=== PATIENT | male | born 1985 | race Caucasian/White ===

== ENCOUNTER → 2017-05-20 | Outpatient (CLI) | payer OTHER ==
[2015-11-30 12:19] VITALS: BP 110/83
[~2017-05-20] MED LIST: HYDR-971 PO
--- NOTE | 2017-05-20 16:40 | RAD ---
Chest, 2 views, 05/20/2017: History: Pleuritic chest pain, cough Comparison is made to a study from 03/15/2013. The heart size is normal. There is a right-sided pneumothorax estimated at 15-20% in volume. There is a small amount of associated pleural fluid. Prominent pulmonary markings medially in the right lower chest probably represent associated atelectasis. The left chest is clear. No left-sided pleural fluid is evident. IMPRESSION: 1. Small right pneumothorax with mild right basilar atelectasis. 2. Tiny right pleural effusion Note: I was unsuccessful in personally contacting the ordering provider, however, this report is currently being delivered to the ordering provider's office by the cardiovascular technologist.
== END | disposition home or self-care (01) ==
LOC: PMG 09:46
PROVIDERS: ATTEND Physician Assistant
DX: J98.11 Atelectasis (principal); J90 Pleural effusion, not elsewhere classified
CPT/HCPCS: 71046

== ENCOUNTER → 2017-05-25 | Outpatient (CLI) | payer OTHER ==
[2015-11-30 12:19] VITALS: BP 110/83
--- NOTE | 2017-05-25 12:26 | RAD ---
2 views of the Chest 05/25/2017 2:00 AM Indication: pneumothorax Comparison: Chest radiograph, May 20, 2017 Findings: There is a small right pneumothorax essentially unchanged from prior study. Trace underlying effusion is similar. Lungs are otherwise grossly clear. Heart size is normal. No acute osseous changes are seen. Impression: Grossly stable small right pneumothorax with trace underlying effusion.
== END | disposition home or self-care (01) ==
LOC: PMG 09:30
PROVIDERS: ATTEND Physician Assistant
DX: J93.83 Other pneumothorax (principal); Z87.891 Personal history of nicotine dependence
CPT/HCPCS: 71046

== ENCOUNTER 2017-07-18 10:58 | Emergency (ER) | payer OTHER ==
[~2017-07-18] VITALS: Ht 170.2 cm; Wt 64.4 kg
[2017-07-18] MEDS ORDERED: IV NORMAL SALINE 1,000ML 1,000 ML IV SCH (11:09)
[2017-07-18 11:38] LABS: BASO # 0.1 x10^3/uL (0.0-0.2); BASO % 1 % (0-3); EOS # 0.2 x10^3/uL (0.0-0.7); EOS % 3 % (0-3); HEMATOCRIT 40.2 % (39.0-53.0); HEMOGLOBIN 13.8 g/dL (13.0-17.5); LYMPH # 1.6 x10^3/uL (1.0-4.8); LYMPH % 19 % (24-48); MEAN CORPUSCULAR HEMOGLOBIN 31 pg (25-35); MEAN CORPUSCULAR HGB CONC 34 g/dL (31-37); MEAN CORPUSCULAR VOLUME 91 fL (79-100); MONO # 0.5 x10^3/uL (0.0-1.1); MONO % 6 % (0-9); NEUT # 6.4 x10^3uL (1.8-7.7); NEUT % 72 % (31-73); PLATELET COUNT 249 x10^3/uL (140-400); RED BLOOD COUNT 4.43 x10^6/uL (4.30-5.70); RED CELL DISTRIBUTION WIDTH 13.1 % (11.5-14.5); WHITE BLOOD COUNT 8.9 x10^3/uL (4.0-11.0)
--- NOTE | 2017-07-18 11:43 | RAD ---
CHEST PA LATERAL Clinical indications: Chest pain x 1 day, pt shielded, no hx of heart disease Findings: A large left-sided pneumothorax is seen with complete collapse of the left lung field. The heart is shifted more towards the right side in comparison to a prior chest x-ray dated May 20, 2017 consistent with tension pneumothorax. No lung consolidation or pleural effusion is seen otherwise. The heart size, pulmonary vasculature, mediastinum and both wes are unremarkable. The osseous structures appear intact. Impression: Tension pneumothorax on the left side. Note-this critical result was called to the emergency room physician Dr. Horace Vilchis at 11:37 AM on July 18, 2017. Electronically signed by: Milton Gorman MD (07/18/2017 11:39 AM) [facility]
--- NOTE | 2017-07-18 11:48 | PHYS DOC ---
Past History Past Medical History: No Pertinent History, Other Past Surgical History: No Surgical History Alcohol Use: None Drug Use: Marijuana Adult General Chief Complaint Chief Complaint: CHEST PAIN HPI HPI 32-year-old male presents with left-sided anterior chest pain. The patient woke up at 7 AM this morning with sudden onset sharp pain in the left chest just above his breast. The pain is moderate to severe. It is worse with deep breathing, lying back, as well as leaning forward forward. He states that when he got on the cart accompanied emergency room the pain was at its worst as he bent over. The patient has not had this happen before. He has had 2 spontaneous pneumothorax in the past, both on the right. Review of Systems Review of Systems Constitutional: Denies fever or chills [] Eyes: Denies change in visual acuity, redness, or eye pain [] HENT: Denies nasal congestion or sore throat [] Respiratory: Denies cough or shortness of breath [] Cardiovascular: No additional information not addressed in HPI [] GI: Denies abdominal pain, nausea, vomiting, bloody stools or diarrhea [] : Denies dysuria or hematuria [] Musculoskeletal: Denies back pain or joint pain [] Integument: Denies rash or skin lesions [] Neurologic: Denies headache, focal weakness or sensory changes [] Endocrine: Denies polyuria or polydipsia [] All other systems were reviewed and found to be within normal limits, except as documented in this note. Current Medications Current Medications Current Medications Medications (Trade) Dose Ordered Sig/Matthew Start Time Stop Time Status Last Admin Dose Admin Sodium Chloride 1,000 ml @ 1,000 mls/hr Q1H 07/18/17 11:09 07/18/17 12:08 UNV Allergies Allergies Allergies Coded Allergies Type Severity Reaction Last Updated Verified bupropion Allergy Unknown 07/18/17 Yes fluticasone Allergy Unknown 07/18/17 Yes haloperidol Allergy Unknown 07/18/17 Yes Physical Exam Physical Exam Constitutional: Well developed, well nourished, no acute distress, non-toxic appearance. [] HENT: Normocephalic, atraumatic, bilateral external ears normal, oropharynx moist, no oral exudates, nose normal. [] Eyes: PERRLA, EOMI, conjunctiva normal, no discharge. [] Neck: Normal range of motion, no tenderness, supple, no stridor. [] Cardiovascular:Heart rate regular rhythm, no murmur [] Lungs & Thorax: friction rub on left with decreased breath sounds on left [] Abdomen: Bowel sounds normal, soft, no tenderness, no masses, no pulsatile masses. [] Skin: Warm, dry, no erythema, no rash. [] Back: No tenderness, no CVA tenderness. [] Extremities: No tenderness, no cyanosis, no clubbing, ROM intact, no edema. [] Neurologic: Alert and oriented X 3, normal motor function, normal sensory function, no focal deficits noted. [] Psychologic: Anxious [] Current Patient Data Vital Signs Vital Signs Date Time Temp Pulse Resp B/P (MAP) Pulse Ox O2 Delivery O2 Flow Rate FiO2 07/18/17 11:00 97.9 90 16 97 Room Air EKG EKG [] Radiology/Procedures Radiology/Procedures CHEST PA LATERAL Clinical indications: Chest pain x 1 day, pt shielded, no hx of heart disease Findings: A large left-sided pneumothorax is seen with complete collapse of the left lung field. The heart is shifted more towards the right side in comparison to a prior chest x-ray dated May 20, 2017 consistent with tension pneumothorax. No lung consolidation or pleural effusion is seen otherwise. The heart size, pulmonary vasculature, mediastinum and both wes are unremarkable. The osseous structures appear intact. Impression: Tension pneumothorax on the left side. Note-this critical result was called to the emergency room physician Dr. Horace Chung at 11:37 AM on July 18, 2017. Electronically signed by: Milton Gorman MD (07/18/2017 11:39 AM) [facility] Portable AP chest x-ray performed at 12:40 PM Clinical indications: Placement of chest tube. COMPARISON: Same day performed 11:27 AM. IMPRESSION: Small left-sided chest tube is now present within the lateral left pleural space. Pneumothorax is smaller in size but still prominent. Left lung field has not fully expanded. Electronically signed by: Milton Gorman MD (07/18/2017 1:03 PM) [facility] [] Course & Med Decision Making Course & Med Decision Making Pertinent Labs and Imaging studies reviewed. (See chart for details) The patient was found to have a left-sided tension pneumothorax. I placed a pigtail catheter chest tube on the left. The patient tolerated the procedure well. See note below for more details. I then contacted the hospitalist Dr. Rai who stated the patient should be transferred to [facility]. I contacted [facility] and Dr. Gonzalez accepted the patient for transfer and requested the patient be placed in the ICU. 35 minutes of critical care time was spent on this patient exclusive of other billable procedures. Chest Tube: I obtained verbal consent from the patient for the procedure. Timeout was performed to establish the correct side and placement of ET tube. The skin was prepped with a ChloraPrep. Adequate time was left for her to drive. A sterile field was established. The patient was anesthetized with 5 mL 1% lidocaine. I then inserted the chest tube with stylette inserted into the fourth intercostal space. Once in the thoracic cavity, I advanced the pigtail toward the apex. I was able to extract air with a 10 mL syringe. I then attached the pigtail to the chest wall with 0 nylon. There was no site bleeding. He follow-up chest x- ray was performed. The pigtail catheter was located inside the thoracic cavity. The lung had reexpanded, but not fully. The patient tolerated the procedure well. There were no complications. [] Dragon Disclaimer Dragon Disclaimer This electronic medical record was generated, in whole or in part, using a voice recognition dictation system. Departure Departure: Referrals: SERA DURAN (PCP) HORACE CHUNG DO Jul 18, 2017 11:48
[2017-07-18 11:50] LABS: ALBUMIN 4.1 g/dL (3.4-5.0); ALBUMIN/GLOBULIN RATIO 1.4 (1.0-1.7); CALCIUM 8.8 mg/dL (8.5-10.1); CREATININE 0.8 mg/dL (0.7-1.3); GFR 111.3; TOTAL BILIRUBIN 0.3 mg/dL (0.2-1.0); TOTAL PROTEIN 7.1 g/dL (6.4-8.2)
[2017-07-18] MEDS ORDERED: HYDROmorphone PF 2 MG/ML VIAL ONE (12:17)
[2017-07-18] MEDS ORDERED: PROCHLORPERAZINE 10 MG/2 ML VIAL. ONE (12:17)
[2017-07-18] MEDS ORDERED: LORazepam 2 MG/ML VIAL ONE (12:26)
[2017-07-18 12:34] VITALS: BP 119/70
[2017-07-18] MEDS ORDERED: LIDOCAINE 2% 20 ML VIAL. IJ ONE (12:45)
--- NOTE | 2017-07-18 13:06 | RAD ---
Portable AP chest x-ray performed at 12:40 PM Clinical indications: Placement of chest tube. COMPARISON: Same day performed 11:27 AM. IMPRESSION: Small left-sided chest tube is now present within the lateral left pleural space. Pneumothorax is smaller in size but still prominent. Left lung field has not fully expanded. Electronically signed by: Milton Gorman MD (07/18/2017 1:03 PM) [facility]
[2017-07-18] MEDS ORDERED: HYDROmorphone PF 2 MG/ML VIAL IV ONE (13:45)
[2017-07-18] MEDS ORDERED: LORazepam 2 MG/ML VIAL IV ONE (13:45)
--- NOTE | 2017-07-18 16:53 | EKG ---
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
== END 2017-07-18 14:17 | disposition short-term general hospital (02) ==
LOC: ER 10:58
DX: R07.89 Other chest pain (principal); Z88.4 Allergy status to anesthetic agent; Z88.8 Allergy status to other drugs, medicaments and biological substances
CPT/HCPCS: 32551; 36415; 71045; 71046; 80053; 83690; 84484; 85025; 93005; 96374; 96375; 99291; J1170; J2060; 96361; J7030

== ENCOUNTER 2017-08-01 00:11 | Emergency (ER) | payer OTHER ==
[~2017-08-01] VITALS: Ht 172.7 cm; Wt 56.5 kg
--- NOTE | 2017-08-01 00:23 | ED.ADGEN ---
Past History Past Medical History: No Pertinent History, Other Past Surgical History: Other Alcohol Use: None Drug Use: Marijuana Adult General Chief Complaint Chief Complaint ".. I ve gotten really short of breath again.. "..." I feel bloated.. " I ve had hx of two pneumo's on my Rt.... and one on the Lt... they did a wedge resection and pleural tx. on the Lt. on last week.. I was discharge on Wed .. this week..." [facility] HPI Patient is a 32 year old male who presents with above hx and complaints of chest pain, dyspnea and constipation. Patient recently discharged from [facility] after Lt. wedge resection and pleurodesis for recurrent pneumothoraxes. Patient has history of 2 pneumothoraxes on right. Recent pneumothorax on the left which would not resolved with chest tubes. Patient has history of emphysema/blebs. Patient reports pain in the chest night similar to prior pneumothoraxes however more pleuritic in nature. Patient has not had any productive rhythm. Patient has taken meds as directed. No recent trauma. Patient has follow up with Dr. Chatterjee and Dr. Priest. Patient is scheduled for another lung reduction and pleurodesis of right lung next month. Review of Systems Review of Systems Constitutional: Denies fever or chills [] Eyes: Denies change in visual acuity, redness, or eye pain [] HENT: Denies nasal congestion or sore throat [] Respiratory: Complaints of pleuritic chest pain[] Cardiovascular: No additional information not addressed in HPI [] GI: Denies abdominal pain, nausea, vomiting, bloody stools or diarrhea [] complaints of constipation : Denies dysuria or hematuria [] Musculoskeletal: Denies back pain or joint pain [] Integument: Denies rash or skin lesions [] Neurologic: Denies headache, focal weakness or sensory changes [] Endocrine: Denies polyuria or polydipsia [] All other systems were reviewed and found to be within normal limits, except as documented in this note. Family History Family History Noncontributory Current Medications Current Medications Current Medications Medications (Trade) Dose Ordered Sig/Matthew Start Time Stop Time Status Last Admin Dose Admin Enoxaparin Sodium (Lovenox 60mg Syringe) 60 mg 1X ONCE 08/01/17 01:30 08/01/17 01:34 DC Info (Do NOT chart on this entry -- for MONITORING) 1 each PRN DAILY PRN 08/01/17 01:00 08/01/17 05:09 DC Iohexol (Omnipaque 300 Mg/ml) 75 ml 1X ONCE 08/01/17 01:00 08/01/17 01:01 DC 08/01/17 02:05 75 ML Ketorolac Tromethamine (Toradol) 15 mg 1X ONCE 08/01/17 01:00 08/01/17 01:01 DC 08/01/17 01:09 15 MG Lactated Ringer's 1,000 ml @ 1,000 mls/hr Q1H 08/01/17 01:00 08/01/17 01:59 DC 08/01/17 01:09 1,000 MLS/HR Magnesium Hydroxide (Milk Of Magnesia) 2,400 mg 1X ONCE 08/01/17 01:00 08/01/17 01:01 DC 08/01/17 01:09 2,400 MG Allergies Allergies Allergies Coded Allergies Type Severity Reaction Last Updated Verified Benzodiazepines Allergy Unknown 08/01/17 Yes bupropion Allergy Unknown 07/18/17 Yes fluticasone Allergy Unknown 07/18/17 Yes haloperidol Allergy Unknown 07/18/17 Yes Physical Exam Physical Exam Constitutional: Moderate distress, non-toxic appearance. [] HENT: Normocephalic, atraumatic, bilateral external ears normal, oropharynx moist, no oral exudates, nose normal. [] Eyes: PERRLA, EOMI, conjunctiva normal, no discharge. [] Neck: Normal range of motion, no tenderness, supple, no stridor. [] Cardiovascular:Heart rate regular rhythm, no murmur [] Lungs & Thorax: Bilateral breath sounds equal apex with scattered wheezes on auscultation []has incision of chest on the left from prior chest tubes. Incision lines appear to be stable. Abdomen: Bowel sounds normal, soft, mild tenderness, no masses, no pulsatile masses. [] Constipation Skin: Warm, dry, no erythema, no rash. [] Back: No tenderness, no CVA tenderness. [] Extremities: No tenderness, no cyanosis, no clubbing, ROM intact, no edema. [] No Cording appreciated Neurologic: Alert and oriented X 3, normal motor function, normal sensory function, no focal deficits noted. [] Psychologic: Affect anxious, judgement normal, mood normal. [] Current Patient Data Vital Signs Vital Signs Date Time Temp Pulse Resp B/P (MAP) Pulse Ox O2 Delivery O2 Flow Rate FiO2 08/01/17 00:31 98.3 77 28 118/74 (89) 100 Room Air Lab Results Laboratory Tests Test 08/01/17 01:11 08/01/17 04:55 White Blood Count 9.4 x10^3/uL (4.0-11.0) Red Blood Count 3.68 x10^6/uL (4.30-5.70) L Hemoglobin 11.4 g/dL (13.0-17.5) L Hematocrit 33.2 % (39.0-53.0) L Mean Corpuscular Volume 90 fL (79-100) Mean Corpuscular Hemoglobin 31 pg (25-35) Mean Corpuscular Hemoglobin Concent 34 g/dL (31-37) Red Cell Distribution Width 13.0 % (11.5-14.5) Platelet Count 312 x10^3/uL (140-400) Neutrophils (%) (Auto) 64 % (31-73) Lymphocytes (%) (Auto) 23 % (24-48) L Monocytes (%) (Auto) 9 % (0-9) Eosinophils (%) (Auto) 4 % (0-3) H Basophils (%) (Auto) 1 % (0-3) Neutrophils # (Auto) 6.0 x10^3uL (1.8-7.7) Lymphocytes # (Auto) 2.2 x10^3/uL (1.0-4.8) Monocytes # (Auto) 0.8 x10^3/uL (0.0-1.1) Eosinophils # (Auto) 0.3 x10^3/uL (0.0-0.7) Basophils # (Auto) 0.1 x10^3/uL (0.0-0.2) Prothrombin Time 9.8 SEC (9.4-11.4) Prothrombin Time INR 1.0 (0.9-1.1) PTT 26 SEC (23-33) D-Dimer (Oma) 0.96 mg/L (0.00-0.50) H Sodium Level 136 mmol/L (136-145) Potassium Level 3.5 mmol/L (3.5-5.1) Chloride Level 100 mmol/L (98-107) Carbon Dioxide Level 27 mmol/L (21-32) Anion Gap 9 (6-14) Blood Urea Nitrogen 7 mg/dL (8-26) L Creatinine 1.1 mg/dL (0.7-1.3) Estimated GFR (Cockcroft-Gault) 77.1 Glucose Level 83 mg/dL (70-99) Calcium Level 8.4 mg/dL (8.5-10.1) L Magnesium Level 1.7 mg/dL (1.8-2.4) L Total Bilirubin 0.2 mg/dL (0.2-1.0) Direct Bilirubin 0.1 mg/dL (0.0-0.2) Aspartate Amino Transferase (AST) 17 U/L (15-37) Alanine Aminotransferase (ALT) 26 U/L (16-63) Alkaline Phosphatase 69 U/L (46-116) Creatine Kinase 63 U/L (39-308) Creatine Kinase MB (Mass) < 0.5 ng/mL (0.0-3.6) Creatine Kinase MB Relative Index 0.8 % (0-4) Troponin I Quantitative < 0.017 ng/mL (0-0.055) VQ-Vby-M-Type Natriuretic Peptide 68 pg/mL (0-124) Total Protein 6.4 g/dL (6.4-8.2) Albumin 3.5 g/dL (3.4-5.0) Lipase 54 U/L (73-393) L Urine Collection Type Unknown Urine Color Yellow Urine Clarity Clear Urine pH 7.5 Urine Specific Anchor 1.010 Urine Protein Neg (NEG-TRACE) Urine Glucose (UA) Neg mg/dL (NEG) Urine Ketones (Stick) Neg mg/dL (NEG) Urine Blood Neg (NEG) Urine Nitrite Neg (NEG) Urine Bilirubin Neg (NEG) Urine Urobilinogen Dipstick 0.2 mg/dL (0.2 mg/dL) Urine Leukocyte Esterase Neg (NEG) Urine RBC 0 /HPF (0-2) Urine WBC Rare /HPF (0-4) Urine Squamous Epithelial Cells Occ /LPF Urine Bacteria 0 /HPF (0-FEW) Urine Opiates Screen Neg (NEG) Urine Methadone Screen Neg (NEG) Urine Barbiturates Neg (NEG) Urine Phencyclidine Screen Neg (NEG) Urine Amphetamine/Methamphetamine Neg (NEG) Urine Benzodiazepines Screen Neg (NEG) Urine Cocaine Screen Neg (NEG) Urine Cannabinoids Screen Pos (NEG) Urine Ethyl Alcohol Neg (NEG) EKG EKG My Dictation of EKG shows a sinus rhythm at 67 bpm. No findings acute STEMI with contralateral changes.[] Radiology/Procedures Radiology/Procedures My interpretation of chest x-ray shows somewhat residual pneumothorax on left with surgery clips. No large infiltrate appreciated. CT of chest shows bilateral centro lobular / para septal emphysema. Small residual pneumo on Lt. Post surgery changes. No PE appreciate. Course & Med Decision Making Course & Med Decision Making Pertinent Labs and Imaging studies reviewed. (See chart for details). Pt. take tylenol and ibuprofen for pain. Pt. to follow up with pulmonary as scheduled. Return if any concerns. Keep follow up with primary. [] Final Impression Final Impression 1. Dyspnea[] 2. Chest wall pain 3. Anemia 4. Hypomagnesemia 1.7 5. Elevated d-dimer 6. Constipation 7. Centrolobular and paraseptal emphysema 8. Hx.of recurrent pneumothorax- Some residual pneumo on Lt post blebectomy and pleurodesis Dragon Disclaimer Dragon Disclaimer This electronic medical record was generated, in whole or in part, using a voice recognition dictation system. KIMBERLY JOHNSON MD Aug 01, 2017 00:23
[2017-08-01] MEDS ORDERED: IBUP200T44 PO (00:31)
[2017-08-01] MEDS ORDERED: HYDR25TA PO (00:31)
[2017-08-01] MEDS ORDERED: OXYC-323 PO (00:31)
[2017-08-01] MEDS ORDERED: IV RINGERS SOLUTION,LACTATED 1,000 ML IV SCH (01:00)
[2017-08-01] MEDS ORDERED: KETOROLAC 15 MG/ML VIAL. IV ONE (01:00)
[2017-08-01] MEDS ORDERED: CONTRAST GIVEN MC PRN (01:00)
[2017-08-01] MEDS ORDERED: IOHEXOL 300 MG/ML 75 ML VIAL. IV ONE (01:00)
[2017-08-01] MEDS ORDERED: MAGNESIUM HYDROXIDE 2,400 MG/30 ML ORAL.SUSP. PO ONE (01:00)
[2017-08-01] MEDS ORDERED: ENOXAPARIN ** NOTE DOSE ** SYRINGE SQ ONE (01:30)
[2017-08-01 01:50] LABS: BASO # 0.1 x10^3/uL (0.0-0.2); BASO % 1 % (0-3); EOS # 0.3 x10^3/uL (0.0-0.7); EOS % 4 % (0-3); HEMATOCRIT 33.2 % (39.0-53.0); HEMOGLOBIN 11.4 g/dL (13.0-17.5); LYMPH # 2.2 x10^3/uL (1.0-4.8); LYMPH % 23 % (24-48); MEAN CORPUSCULAR HEMOGLOBIN 31 pg (25-35); MEAN CORPUSCULAR HGB CONC 34 g/dL (31-37); MEAN CORPUSCULAR VOLUME 90 fL (79-100); MONO # 0.8 x10^3/uL (0.0-1.1); MONO % 9 % (0-9); NEUT % 64 % (31-73); PLATELET COUNT 312 x10^3/uL (140-400); RED BLOOD COUNT 3.68 x10^6/uL (4.30-5.70); WHITE BLOOD COUNT 9.4 x10^3/uL (4.0-11.0)
[2017-08-01 02:24] LABS: ALBUMIN 3.5 g/dL (3.4-5.0); ALK PHOS 69 U/L (46-116); ALT (SGPT) 26 U/L (16-63); ANION GAP 9 (6-14); AST (SGOT) 17 U/L (15-37); BLOOD UREA NITROGEN 7 mg/dL (8-26); CALCIUM 8.4 mg/dL (8.5-10.1); CARBON DIOXIDE 27 mmol/L (21-32); CHLORIDE 100 mmol/L (98-107); CREATININE 1.1 mg/dL (0.7-1.3); DIRECT BILIRUBIN 0.1 mg/dL (0.0-0.2); GFR 77.1; GLUCOSE 83 mg/dL (70-99); LIPASE 54 U/L (73-393); MAGNESIUM 1.7 mg/dL (1.8-2.4); POTASSIUM 3.5 mmol/L (3.5-5.1); SODIUM 136 mmol/L (136-145); TOTAL BILIRUBIN 0.2 mg/dL (0.2-1.0); TOTAL PROTEIN 6.4 g/dL (6.4-8.2)
--- NOTE | 2017-08-01 02:45 | EKG ---
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
--- NOTE | 2017-08-01 04:25 | RAD ---
EXAM: CT ANGIOGRAPHY OF THE CHEST WITH AND WITHOUT INTRAVENOUS CONTRAST. HISTORY: Chest pain, dyspnea, syncope. TECHNIQUE: Computed tomographic angiography of the chest was performed before and after the intravenous administration of 75 mL Omnipaque 300. 3-D maximum intensity projections were also performed. COMPARISON: July 18, 2017. FINDINGS: Images of the upper abdomen reveal no acute abnormality. Bone windows reveal no suspicious lesions. No pulmonary emboli are identified. There is no aortic dissection or aneurysm. There are no pathologically enlarged mediastinal or axillary lymph nodes. There is no pleural or pericardial effusion. The heart is not enlarged. A lung suture line is again noted in the left apex. A small left apical pneumothorax persists. It has decreased in size since July 18, 2017. Centrilobular and paraseptal emphysema are moderate, but advanced for patient age. IMPRESSION: 1. No pulmonary embolism. 2. Postoperative changes along the left apical lung suture line. No acute infiltrate. 3. Small residual left pneumothorax, decreased since July 18, 2017. 4. Moderate centrilobular and paraseptal emphysema is advanced for patient age. *One or more of the following individualized dose reduction techniques were utilized for this examination: 1. Automated exposure control. 2. Adjustment of the mA and/or kV according to patient size. 3. Use of iterative reconstruction technique. Electronically signed by: Candis Ferguson MD (08/01/2017 4:21 AM) [id number]
--- NOTE | 2017-08-01 04:26 | RAD ---
EXAM: CHEST 1 VIEW. HISTORY: Chest pain. Recent lung resection and pneumothorax. COMPARISON: July 18, 2017. FINDINGS: A frontal view of the chest is obtained. There is a lung suture line in the left apex. There is a small left apical pneumothorax, decreased since the prior study. There are no confluent infiltrates. There is no pleural effusion. The heart is not enlarged. IMPRESSION: 1. A small left apical pneumothorax has decreased since July 18, 2017. Electronically signed by: Candis Ferguson MD (08/01/2017 4:22 AM) [id number]
[2017-08-01 04:30] VITALS: BP 120/75
[2017-08-01 05:20] LABS: BACTERIA,URINE 0 /HPF (0-FEW); BILIRUBIN,URINE NEG (NEG); CLARITY,URINE CLEAR; COLOR,URINE YELLOW; GLUCOSE,URINE NEG (NEG); NITRITE,URINE NEG (NEG); RBC,URINE 0 /HPF (0-2); SQUAMOUS EPITHELIAL CELL,UR OCC /LPF; UROBILINOGEN,URINE 0.2 mg/dL (0.2 mg/dL); WBC,URINE RARE /HPF (0-4)
[2017-08-01 05:28] LABS: BARBITURATES NEG (NEG); BENZODIAZEPINES NEG (NEG); CANNABINOIDS POS (NEG); COCAINE NEG (NEG); METHADONE NEG (NEG); OPIATES NEG (NEG); PHENCYCLIDINE NEG (NEG)
[2017-08-01 05:29] LABS: AMPHETAMINE/METHAMPHETAMINE NEG (NEG)
== END 2017-08-01 05:00 | disposition home or self-care (01) ==
LOC: ER 00:11
DX: R07.89 Other chest pain (principal); D64.9 Anemia, unspecified; E83.42 Hypomagnesemia; R79.1 Abnormal coagulation profile; K59.00 Constipation, unspecified; J43.2 Centrilobular emphysema; J43.8 Other emphysema; Z88.8 Allergy status to other drugs, medicaments and biological substances
CPT/HCPCS: 36415; 71045; 71275; 80048; 80076; 80307; 81001; 82553; 83690; 83735; 83880; 84443; 84484; 85025; 85379; 85610; 85730; 93005; 96374; 99285; J1885; J7120; Q9967; G0479

== ENCOUNTER → 2017-11-01 | Outpatient (CLI) | payer OTHER ==
[~2017-11-01] MED LIST changes: +HYDR25TA PO; +IBUP200T44 PO; +OXYC-323 PO
--- NOTE | 2017-11-01 16:31 | RAD ---
CHEST PA LATERAL Clinical indications: ASTHMA, 4 ENDOBRONICIAL VALVE REPLACEMENTS COMPARISON: August 01, 2017. Findings: There is a new finding of metallic devices within the right hilum. New finding of right apical postsurgical changes with volume loss in the right side and elevation of the right hemidiaphragm. No lung consolidation or pleural effusion or pulmonary edema or lung mass or pneumothorax is seen. The heart size, pulmonary vasculature, mediastinum and both wes are unremarkable. The osseous structures appear intact. Impression: No acute radiographic abnormality is seen. Electronically signed by: Milton Gorman MD (11/01/2017 4:28 PM) [facility]
== END | disposition home or self-care (01) ==
LOC: PMG 11:31
PROVIDERS: ATTEND Neuromusculoskeletal Medicine & OMM
DX: J45.909 Unspecified asthma, uncomplicated (principal); Z86.2 Personal history of diseases of the blood and blood-forming organs and certain disorders involving the immune mechanism; Z87.891 Personal history of nicotine dependence; Z88.8 Allergy status to other drugs, medicaments and biological substances; Z88.4 Allergy status to anesthetic agent
CPT/HCPCS: 71046

== ENCOUNTER → 2018-01-22 | Outpatient (CLI) | payer OTHER ==
[~2018-01-22] MED LIST changes: +HYDR-3165 PO; -HYDR-971 PO; -OXYC-323 PO; +OXYC1TAB15 PO
--- NOTE | 2018-01-22 10:52 | RAD ---
PA and lateral chest x-ray COMPARISON: Chest x-ray November 01, 2017 and prior studies. HISTORY: Pleuritic chest pain. Cough. FINDINGS: Heart size normal. Mediastinal silhouette is normal. Suture lines at the lung apices. Mild linear scarring right lateral upper lobe stable. No pneumothorax, pulmonary opacities or pleural effusions. Bones are unremarkable. IMPRESSION: No acute process. Stable exam. Electronically signed by: Mark Altamirano MD (01/22/2018 10:49 AM) [facility]
== END | disposition home or self-care (01) ==
LOC: RAD 09:27
PROVIDERS: ATTEND Physician Assistant
DX: R07.81 Pleurodynia (principal); R91.8 Other nonspecific abnormal finding of lung field
CPT/HCPCS: 71046

== ENCOUNTER → 2018-05-25 | Outpatient (CLI) | payer OTHER ==
--- NOTE | 2018-05-25 13:56 | RAD ---
Abdominal ultrasound 05/25/2018 INDICATION: Right upper quadrant pain x3 weeks. COMPARISON STUDY: None. FINDINGS: Ultrasound evaluation of the abdomen was performed. Static images are submitted to PACS. The pancreas appears be grossly unremarkable. Visualized aorta is unremarkable. Visualized portions of the IVC are unremarkable. The gallbladder is normal in appearance without evidence of wall thickening, stones, or sludge. Portal venous flows in the normal direction. The common bile duct is nondilated at 3 mm. Hepatic echotexture is normal. Liver is top normal in size measuring 17.7 cm longitudinally. The right kidney is normal in appearance measuring 10.9 cm in length. The left kidney is normal in appearance measuring 10.2 cm in length. The spleen is normal in size. IMPRESSION: Normal sonographic appearance of the abdomen Electronically signed by: Kamar Bacon MD (05/25/2018 1:54 PM) [id number]
== END | disposition home or self-care (01) ==
LOC: US 11:19
PROVIDERS: ATTEND Physician Assistant
DX: R10.11 Right upper quadrant pain (principal)
CPT/HCPCS: 76700